=== PATIENT | male | born 1975 | race Two or more races ===

== ENCOUNTER 2025-08-07 11:38 | Inpatient (IN) | payer MEDICAID ==
[~2025-08-07] VITALS: Ht 172.7 cm; Wt 53.5 kg
[2025-08-07] MEDS ORDERED: PIPERACI/TAZO 3.375GM/D5W 50ML PB IV ONE (12:14)
[2025-08-07] MEDS ORDERED: VANCOMYCIN 1 GM /D5W 250 ML PB IV ONE (12:14)
[2025-08-07] MEDS: IV NS 0.9% 1,000 ML BAG IV ONE (12:26)
[2025-08-07] MEDS: PIPERACILLIN /TAZOBACTAM 3.375 G in IV D5W 50 ML IV ONE (12:30)
[2025-08-07 12:49] LABS: CALCIUM, SERUM 8.2 mg/dL (8.5-10.1); CREATININE 0.9 mg/dL (0.6-1.3); SODIUM SERUM 134 mmol/L (136-145); UREA NITROGEN, BLOOD 10 mg/dL (7-18)
[2025-08-07 12:54] LABS: ASPARTATE AMINOTRANSFERASE 20 U/L (15-37); TOTAL PROTEIN, SERUM 7.3 g/dL (6.4-8.2)
[2025-08-07 12:56] LABS: LACTIC ACID 9.1 mmol/L (0.4-2.0)
[2025-08-07 12:58] LABS: INR 1.08 (0.91-1.10)
[2025-08-07 13:06] LABS: PLATELET COUNT (AUTO) 165 K/uL (150-450); RED BLOOD CELL COUNT(AUTO) 3.32 MIL/uL (4.5-6.0); RED CELL DISTRIBUTION WIDTH 25.6 % (11.5-15.0)
[2025-08-07 13:07] LABS: WHITE BLOOD COUNT (AUTO) 1.9 K/uL (4.3-11.0)
[2025-08-07] MEDS: VANCOMYCIN 1 GM in IV D5W 250 ML IV ONE (13:15)
[2025-08-07 13:34] LABS: LYMPHOCYTES % (MANUAL) 8 % (16-48); MONOCYTES % (MANUAL) 16 % (0-11.0); NEUTROPHILS % (MANUAL) 76 (42-76)
[2025-08-07 13:39] LABS: PLATELET ESTIMATE ADEQUATE
[2025-08-07] MEDS ORDERED: DOSING PER PHARMACY-VANCOMYCIN IV XX PRN (14:30)
[2025-08-07] MEDS ORDERED: MAG HYDROX/AL HYDROX/SIMETH 30 ML UDC PO PRN (14:30)
[2025-08-07] MEDS ORDERED: ACETAMINOPHEN 325 MG TABLET PO PRN (14:30)
[2025-08-07] MEDS ORDERED: ONDANSETRON HCL/PF 4 MG/2 ML VIAL IVP PRN (14:30)
[2025-08-07] MEDS ORDERED: MAGNESIUM HYDROXIDE 30 ML UDC PO PRN (14:30)
[2025-08-07 14:42] LABS: APPEARANCE,URINE SLIGHTLY CLOUDY (CLEAR); BLOOD, URINE 2+ Ery/uL (NEGATIVE); LEUKOCYTE ESTERASE ,URINE 2+ (NEGATIVE); NITRITE, URINE NEGATIVE (NEGATIVE); UGLUCOSE NEGATIVE (NEGATIVE)
[2025-08-07 14:52] LABS: ADD URINE CULTURE YES; SQUAMOUS EPITHELIAL CELL,UR Few /HPF (None Seen)
[2025-08-07 14:53] LABS: CALCIUM OXALATE CRYSTALS,UR Moderate /HPF (None Seen)
[2025-08-07 15:00] VITALS: BP 97/64; TEMP 98.6; O2SAT 96
[2025-08-07] MEDS: ENOXAPARIN SODIUM 40 MG/0.4 ML DISP.SYRIN SQ SCH (15:00)
[2025-08-07] MEDS: IV NS 0.9% 1,000 ML IV SCH (15:28)
[2025-08-07] MEDS: VANCOMYCIN 500 MG in IV D5W 100ml IV ONE (16:04)
[2025-08-07] MEDS: DOCUSATE SODIUM 100 MG CAPSULE PO SCH (16:52)
[2025-08-07 17:40] VITALS: BP 97/64; TEMP 98.6; O2SAT 96
[2025-08-07 20:00] VITALS: BP 102/67; TEMP 98.1; O2SAT 98
[2025-08-07 20:15] VITALS: BP 99/70; TEMP 98.1; O2SAT 98
[2025-08-07] MEDS: CEFEPIME 1 GM in IV D5W 50 ML IV SCH (20:52)
[2025-08-07] MEDS ORDERED: PIPERACILLIN /TAZOBACTAM 3.375 G in IV D5W 100 ML IV SCH (21:00)
[2025-08-07] MEDS ORDERED: PIPERACILLIN /TAZOBACTAM 3.375 G in IV D5W 50 ML IV SCH (21:00)
[2025-08-08] MEDS: VANCOMYCIN HCL 1.25 GM in IV D5W 250 ML IV SCH (03:08)
[2025-08-08 08:00] VITALS: BP 118/74; TEMP 97.9; O2SAT 98
[2025-08-08 08:05] LABS: PLATELET COUNT (AUTO) 142 K/uL (150-450); RED BLOOD CELL COUNT(AUTO) 2.45 MIL/uL (4.5-6.0); RED CELL DISTRIBUTION WIDTH 27.2 % (11.5-15.0)
[2025-08-08 08:18] LABS: CALCIUM, SERUM 7.8 mg/dL (8.5-10.1); CREATININE 0.6 mg/dL (0.6-1.3); PHOSPHORUS 3.4 mg/dL (2.5-4.9); SODIUM SERUM 138.0 mmol/L (136-145); UREA NITROGEN, BLOOD 8.0 mg/dL (7-18)
[2025-08-08 08:54] LABS: WHITE BLOOD COUNT (AUTO) 1.8 K/uL (4.3-11.0)
[2025-08-08] MEDS: PANTOPRAZOLE 40 MG TABLET.DR PO SCH (09:40)
[2025-08-08] MEDS: ACYCLOVIR 200 MG CAPSULE PO SCH (09:40)
[2025-08-08] MEDS: POTASSIUM CHLORIDE 20 MEQ TAB.PRT.SR PO SCH (09:46)
[2025-08-08] MEDS: MAGNESIUM OXIDE 400 MG TABLET PO ONE (09:46)
[2025-08-08] MEDS ORDERED: FILGRASTIM (300 MCG) 300 MCG/ML VIAL SQ SCH (13:30)
[2025-08-08 13:43] LABS: IRON, SERUM 18.0 ug/dl (50-175)
[2025-08-08] MEDS: FILGRASTIM (300 MCG) 300 MCG/ML VIAL SQ SCH (15:00)
[2025-08-08 16:00] VITALS: BP 94/72; TEMP 98.6; O2SAT 98
[2025-08-08 16:23] LABS: FIBRINOGEN ACTIVITY 333.0 Mg/dL (213-485); INR 1.12 (0.91-1.10)
[2025-08-08 16:34] LABS: LYMPHOCYTES % (MANUAL) 25 % (16-48); MONOCYTES % (MANUAL) 18 % (0-11.0); MYELOCYTES % 1 % (0-0); NEUTROPHILS % (MANUAL) 56 (42-76); PLATELET ESTIMATE DECREASED
[2025-08-08 17:20] LABS: RHEUMATOID FACTOR SCREEN NEGATIVE (NEGATIVE)
[2025-08-08] MEDS: VANCOMYCIN 1 GM in IV D5W 250ml IV SCH (17:58)
[2025-08-08 20:00] VITALS: BP 99/65; TEMP 98.2; O2SAT 97
[2025-08-08 21:29] LABS: HIV-1/2 ANTIBODY NON REACTIVE (NONREACTIVE)
[2025-08-09] MEDS: IV NS 0.9% 1,000 ML IV PRN (04:35)
[2025-08-09 06:47] LABS: PLATELET COUNT (AUTO) 213 K/uL (150-450); RED BLOOD CELL COUNT(AUTO) 2.82 MIL/uL (4.5-6.0); RED CELL DISTRIBUTION WIDTH 26.3 % (11.5-15.0); WHITE BLOOD COUNT (AUTO) 2.3 K/uL (4.3-11.0)
[2025-08-09 07:06] LABS: CALCIUM, SERUM 7.5 mg/dL (8.5-10.1); CREATININE 0.6 mg/dL (0.6-1.3); PHOSPHORUS 2.2 mg/dL (2.5-4.9); SODIUM SERUM 136.0 mmol/L (136-145); UREA NITROGEN, BLOOD 6.0 mg/dL (7-18)
[2025-08-09 07:09] LABS: FIBRINOGEN ACTIVITY 366.0 Mg/dL (213-485); INR 1.11 (0.91-1.10)
[2025-08-09 08:00] VITALS: BP 113/78; TEMP 98.5; O2SAT 100
[2025-08-09 09:52] LABS: EOSINOPHILS % (MANUAL) 3 % (0-4); LYMPHOCYTES % (MANUAL) 16 % (16-48); MONOCYTES % (MANUAL) 48 % (0-11.0); NEUTROPHILS % (MANUAL) 33 (42-76); PLATELET ESTIMATE ADEQUATE
[2025-08-09] MEDS: MAGNESIUM OXIDE 400 MG TABLET PO ONE (10:00)
[2025-08-09 10:09] LABS: CARCINOEMBRYONIC ANTIGEN (CEA) 1.7 ng/mL (0.0-4.7); FOLIC ACID > 20.0 ng/mL (>3.0); IMMUNOGLOBULIN A, SERUM 421 mg/dL (90-386); IMMUNOGLOBULIN M, SERUM 85 mg/dL (20-172)
[2025-08-09] MEDS: NEUTRA PHOS 1 POWD.PACKET PO ONE (11:04)
[2025-08-09 14:11] LABS: FREE KAPPA LT CHAINS SERUM 112.3 mg/L (3.3-19.4); FREE LAMBDA LT CHAIN SERUM 138.2 mg/L (5.7-26.3); KAPPA/LAMBDA RATIO SERUM 0.81 (0.26-1.65)
[2025-08-09 16:19] VITALS: BP 108/81; TEMP 98.4; O2SAT 97
[2025-08-09 20:00] VITALS: BP 110/77; TEMP 98.4; O2SAT 99
[2025-08-09] MEDS: DOXYCYCLINE HYCLATE (100 MG) 100 MG TABLET PO SCH (21:27)
[2025-08-09] MEDS: CIPROFLOXACIN HCL 500 MG TABLET PO SCH (21:27)
[2025-08-10] MEDS ORDERED: VANCOMYCIN 750 MG in IV D5W 250 ML IV SCH (01:00)
[2025-08-10 07:54] LABS: PLATELET COUNT (AUTO) 294 K/uL (150-450); RED BLOOD CELL COUNT(AUTO) 2.95 MIL/uL (4.5-6.0); RED CELL DISTRIBUTION WIDTH 26.9 % (11.5-15.0); WHITE BLOOD COUNT (AUTO) 4.1 K/uL (4.3-11.0)
[2025-08-10 08:00] VITALS: BP 133/83; TEMP 98.1; O2SAT 99
[2025-08-10 08:23] LABS: CALCIUM, SERUM 7.5 mg/dL (8.5-10.1); CREATININE 0.5 mg/dL (0.6-1.3); PHOSPHORUS 2.8 mg/dL (2.5-4.9); SODIUM SERUM 135.0 mmol/L (136-145); UREA NITROGEN, BLOOD 4.0 mg/dL (7-18)
[2025-08-10 09:08] LABS: EOSINOPHILS % (MANUAL) 2 % (0-4); LYMPHOCYTES % (MANUAL) 18 % (16-48); MONOCYTES % (MANUAL) 36 % (0-11.0); NEUTROPHILS % (MANUAL) 44 (42-76); PLATELET ESTIMATE ADEQUATE
[2025-08-10] MEDS: POTASSIUM CHLORIDE 20 MEQ TAB.PRT.SR PO SCH (10:23)
[2025-08-10] MEDS: MAGNESIUM OXIDE 400 MG TABLET PO SCH (10:23)
[2025-08-10] MEDS ORDERED: IV NS 0.9% 250 ML IV ONE (11:10)
[2025-08-10] MEDS ORDERED: IOHEXOL-300 100 ML VIAL IV ONE (11:10)
[2025-08-10] MEDS ORDERED: CT SWABBABLE VALVE TRANS SET 1 EA INFUS.SET MC ONE (11:11)
[2025-08-10 20:00] VITALS: BP 126/91; TEMP 98.2; O2SAT 98
[2025-08-10 21:11] LABS: HEPATITIS B CORE AB, TOTAL Negative (Negative)
[2025-08-11 06:00] VITALS: BP_SYST 119; BP_SYST 138; BP_DIAS 82; BP_DIAS 95; TEMP 98.2; O2SAT 100
[2025-08-11 06:07] LABS: *ANA ANTI-CENTROMERE B AB <0.2 AI (0.0-0.9); *ANA ANTI-DNA(DS) AB, QN 10 IU/mL (0-9); *ANA ANTI-JO-1 <0.2 AI (0.0-0.9); *ANA ANTICHROMATIN ANTIBODY <0.2 AI (0.0-0.9); *ANA RNP ANTIBODIES 0.3 AI (0.0-0.9); *ANA SJOGREN'S ANTI-SS-A <0.2 AI (0.0-0.9); *ANA SJOGREN'S ANTI-SS-B <0.2 AI (0.0-0.9); *ANAANTI-SCLERODERMA-70 AB <0.2 AI (0.0-0.9); *ANASMITH AB <0.2 AI (0.0-0.9)
[2025-08-11 06:19] LABS: PLATELET COUNT (AUTO) 385 K/uL (150-450); RED BLOOD CELL COUNT(AUTO) 3.21 MIL/uL (4.5-6.0); RED CELL DISTRIBUTION WIDTH 25.8 % (11.5-15.0); WHITE BLOOD COUNT (AUTO) 6.9 K/uL (4.3-11.0)
[2025-08-11 06:36] LABS: CALCIUM, SERUM 7.7 mg/dL (8.5-10.1); CREATININE 0.6 mg/dL (0.6-1.3); PHOSPHORUS 3.0 mg/dL (2.5-4.9); SODIUM SERUM 134.0 mmol/L (136-145); UREA NITROGEN, BLOOD 5.0 mg/dL (7-18)
[2025-08-11 08:00] VITALS: BP 140/95; TEMP 98.1; O2SAT 99
[2025-08-11] MEDS: MAGNESIUM OXIDE 400 MG TABLET PO SCH (09:50)
[2025-08-11] MEDS: POTASSIUM CHLORIDE 20 MEQ TAB.PRT.SR PO SCH (09:50)
[2025-08-11 10:01] LABS: BAND % (MANUAL) 3 % (0.0-5.0); EOSINOPHILS % (MANUAL) 3 % (0-4); LYMPHOCYTES % (MANUAL) 11 % (16-48); MONOCYTES % (MANUAL) 8 % (0-11.0); MYELOCYTES % 6 % (0-0); NEUTROPHILS % (MANUAL) 69 (42-76)
[2025-08-11 10:02] LABS: PLATELET ESTIMATE ADEQUATE
[2025-08-11 14:54] VITALS: BP_SYST 112; BP_SYST 132; BP_DIAS 71; TEMP 98.1; O2SAT 98
[2025-08-11 16:00] VITALS: BP 138/94; TEMP 98.1; O2SAT 100
[2025-08-11 20:00] VITALS: BP_SYST 113; BP_SYST 118; BP_DIAS 53; BP_DIAS 83; TEMP 98.2; O2SAT 98
[2025-08-11] MEDS: PIPERACILLIN /TAZOBACTAM 3.375 G in IV D5W 50 ML IV SCH (23:10)
[2025-08-12 06:35] LABS: PLATELET COUNT (AUTO) 442 K/uL (150-450); RED BLOOD CELL COUNT(AUTO) 3.22 MIL/uL (4.5-6.0); RED CELL DISTRIBUTION WIDTH 26.2 % (11.5-15.0); WHITE BLOOD COUNT (AUTO) 10.5 K/uL (4.3-11.0)
[2025-08-12 07:15] LABS: CALCIUM, SERUM 7.9 mg/dL (8.5-10.1); CREATININE 0.6 mg/dL (0.6-1.3); PHOSPHORUS 3.4 mg/dL (2.5-4.9); SODIUM SERUM 133.0 mmol/L (136-145); UREA NITROGEN, BLOOD 5.0 mg/dL (7-18)
[2025-08-12 08:00] VITALS: BP 137/85; TEMP 97.7; O2SAT 100
[2025-08-12 08:31] LABS: EOSINOPHILS % (MANUAL) 3 % (0-4); LYMPHOCYTES % (MANUAL) 2 % (16-48); MONOCYTES % (MANUAL) 15 % (0-11.0); MYELOCYTES % 2 % (0-0); NEUTROPHILS % (MANUAL) 78 (42-76)
[2025-08-12 08:32] LABS: PLATELET ESTIMATE ADEQUATE
[2025-08-12] MEDS: MAGNESIUM OXIDE 400 MG TABLET PO ONE (13:14)
[2025-08-12] MEDS ORDERED: GADOTERATE MEGLUMINE 10 MMOL/20 ML VIAL IV ONE (14:25)
[2025-08-12 16:00] VITALS: BP 116/81; TEMP 98.1; O2SAT 99
[2025-08-12 20:00] VITALS: BP_SYST 118; BP_SYST 150; BP_DIAS 71; BP_DIAS 85; TEMP 98.2; O2SAT 100
[2025-08-13 06:57] LABS: PLATELET COUNT (AUTO) 477 K/uL (150-450); RED BLOOD CELL COUNT(AUTO) 3.30 MIL/uL (4.5-6.0); RED CELL DISTRIBUTION WIDTH 26.0 % (11.5-15.0); WHITE BLOOD COUNT (AUTO) 12.0 K/uL (4.3-11.0)
[2025-08-13 07:08] LABS: CALCIUM, SERUM 8.0 mg/dL (8.5-10.1); CREATININE 0.6 mg/dL (0.6-1.3); PHOSPHORUS 3.6 mg/dL (2.5-4.9); SODIUM SERUM 132.0 mmol/L (136-145); UREA NITROGEN, BLOOD 6.0 mg/dL (7-18)
[2025-08-13 09:00] VITALS: BP 142/91; TEMP 97.3; O2SAT 99
[2025-08-13] MEDS: POTASSIUM CHLORIDE 20 MEQ TAB.PRT.SR PO SCH (10:05)
[2025-08-13] MEDS: MAGNESIUM OXIDE 400 MG TABLET PO ONE (10:05)
[2025-08-13 12:54] LABS: BASOPHILS % (MANUAL) 0 % (0.0-2.0); EOSINOPHILS % (MANUAL) 0 % (0-4); LYMPHOCYTES % (MANUAL) 9 % (16-48); MONOCYTES % (MANUAL) 21 % (0-11.0); NEUTROPHILS % (MANUAL) 70 (42-76)
[2025-08-13 12:55] LABS: PLATELET ESTIMATE ADEQUATE
[2025-08-13] MEDS: PIPERACILLIN /TAZOBACTAM 3.375 G in IV D5W 100 ML IV SCH (13:40)
[2025-08-13 16:33] VITALS: BP 109/60; TEMP 98; O2SAT 94
[2025-08-13 20:39] VITALS: BP 123/85; TEMP 97.3; O2SAT 99
[2025-08-14 06:30] LABS: PLATELET COUNT (AUTO) 468 K/uL (150-450); RED BLOOD CELL COUNT(AUTO) 3.11 MIL/uL (4.5-6.0); RED CELL DISTRIBUTION WIDTH 25.2 % (11.5-15.0); WHITE BLOOD COUNT (AUTO) 14.1 K/uL (4.3-11.0)
[2025-08-14 06:35] LABS: FIBRINOGEN ACTIVITY 405.0 Mg/dL (213-485); INR 1.09 (0.91-1.10)
[2025-08-14 06:40] LABS: CALCIUM, SERUM 7.6 mg/dL (8.5-10.1); CREATININE 0.7 mg/dL (0.6-1.3); PHOSPHORUS 3.6 mg/dL (2.5-4.9); SODIUM SERUM 132.0 mmol/L (136-145); UREA NITROGEN, BLOOD 7.0 mg/dL (7-18)
[2025-08-14 07:00] VITALS: BP 140/96; TEMP 98.4; O2SAT 100
[2025-08-14] MEDS: POTASSIUM CL. PREMIX PERIPHER. 50 ML IV SCH (09:34)
[2025-08-14 11:08] LABS: EOSINOPHILS % (MANUAL) 5 % (0-4); LYMPHOCYTES % (MANUAL) 4 % (16-48); METAMYELOCYTES % 3 % (0-0); MONOCYTES % (MANUAL) 1 % (0-11.0); MYELOCYTES % 1 % (0-0); NEUTROPHILS % (MANUAL) 86 (42-76); PLATELET ESTIMATE INCREASED
[2025-08-14] MEDS ORDERED: NALOXONE PREFILLED SYRINGE 2 MG/2 ML SYRINGE IV PRN ×2 (11:30)
[2025-08-14] MEDS ORDERED: FENTANYL PF 250MCG/5ML AMPUL IV PRN ×2 (11:30)
[2025-08-14] MEDS ORDERED: MIDAZOLAM HCL 2 MG/2ML VIAL IV PRN ×2 (11:30)
[2025-08-14] MEDS ORDERED: FLUMAZENIL 0.5 MG VIAL IV PRN ×2 (11:30)
[2025-08-14] MEDS ORDERED: LIDOCAINE 1% INJ 50 ML MDV IJ ONE (11:31)
[2025-08-14] MEDS ORDERED: LIDOCAINE HCL/PF 1% 30 ML SDV ONE (11:32)
[2025-08-14 15:00] VITALS: BP 120/84; TEMP 97.9; O2SAT 100
[2025-08-14 17:58] VITALS: BP 116/77; TEMP 98.4; O2SAT 100
[2025-08-14 19:00] VITALS: BP 116/76; TEMP 99.7; O2SAT 99
[2025-08-15 07:00] VITALS: BP 116/85; TEMP 98.6; O2SAT 99
[2025-08-15 07:20] LABS: PLATELET COUNT (AUTO) 443 K/uL (150-450); RED BLOOD CELL COUNT(AUTO) 2.97 MIL/uL (4.5-6.0); RED CELL DISTRIBUTION WIDTH 25.3 % (11.5-15.0); WHITE BLOOD COUNT (AUTO) 15.1 K/uL (4.3-11.0)
[2025-08-15 07:30] LABS: FIBRINOGEN ACTIVITY 394.0 Mg/dL (213-485); INR 1.07 (0.91-1.10)
[2025-08-15 07:46] LABS: CALCIUM, SERUM 7.7 mg/dL (8.5-10.1); CREATININE 0.7 mg/dL (0.6-1.3); PHOSPHORUS 2.9 mg/dL (2.5-4.9); SODIUM SERUM 134.0 mmol/L (136-145); UREA NITROGEN, BLOOD 8.0 mg/dL (7-18)
[2025-08-15 16:00] VITALS: BP 119/75; TEMP 99.3; O2SAT 98
[2025-08-15 20:00] VITALS: BP 123/76; TEMP 98.2; TEMP 98.6; O2SAT 99
[2025-08-16 07:23] LABS: PLATELET COUNT (AUTO) 387 K/uL (150-450); RED BLOOD CELL COUNT(AUTO) 2.93 MIL/uL (4.5-6.0); RED CELL DISTRIBUTION WIDTH 25.2 % (11.5-15.0); WHITE BLOOD COUNT (AUTO) 13.5 K/uL (4.3-11.0)
[2025-08-16 08:00] VITALS: BP 143/94; TEMP 98.2; O2SAT 100
[2025-08-16 08:00] LABS: CALCIUM, SERUM 7.6 mg/dL (8.5-10.1); CREATININE 0.6 mg/dL (0.6-1.3); SODIUM SERUM 133.0 mmol/L (136-145); UREA NITROGEN, BLOOD 6.0 mg/dL (7-18)
[2025-08-16 09:08] LABS: EOSINOPHILS % (MANUAL) 1 % (0-4); LYMPHOCYTES % (MANUAL) 6 % (16-48); MONOCYTES % (MANUAL) 12 % (0-11.0); NEUTROPHILS % (MANUAL) 81 (42-76); PLATELET ESTIMATE ADEQUATE
[2025-08-16 10:05] VITALS: BP_SYST 140; BP_SYST 144; BP_DIAS 92; BP_DIAS 96
[2025-08-16] MEDS: POTASSIUM CHLORIDE 20 MEQ TAB.PRT.SR PO ONE (12:13)
[2025-08-16 16:18] VITALS: BP 128/79; TEMP 97.7; O2SAT 99
[2025-08-16 20:00] VITALS: BP_SYST 133; BP_SYST 138; BP_DIAS 91; BP_DIAS 95; TEMP 98
[2025-08-17 06:01] LABS: PLATELET COUNT (AUTO) 375 K/uL (150-450); RED BLOOD CELL COUNT(AUTO) 2.83 MIL/uL (4.5-6.0); RED CELL DISTRIBUTION WIDTH 24.6 % (11.5-15.0); WHITE BLOOD COUNT (AUTO) 14.6 K/uL (4.3-11.0)
[2025-08-17 06:02] LABS: CALCIUM, SERUM 7.7 mg/dL (8.5-10.1); CREATININE 0.5 mg/dL (0.6-1.3); PHOSPHORUS 2.9 mg/dL (2.5-4.9); SODIUM SERUM 133.0 mmol/L (136-145); UREA NITROGEN, BLOOD 7.0 mg/dL (7-18)
[2025-08-17] MEDS ORDERED: ACYC400T19 PO (08:36)
[2025-08-17 08:39] VITALS: BP 151/100; TEMP 98.2; O2SAT 97
[2025-08-17] MEDS ORDERED: POTASSIUM CHLORIDE 20 MEQ TAB.PRT.SR PO ONE (09:00)
[2025-08-17] MEDS: POTASSIUM CHLORIDE 20 MEQ POWDER PACKET PO ONE (09:37)
[2025-08-17] MEDS: MAGNESIUM OXIDE 400 MG TABLET PO ONE (10:43)
[2025-08-17 16:28] VITALS: BP 102/50; TEMP 97.7; O2SAT 94
[2025-08-17 18:16] LABS: IRON, SERUM 30 ug/dl (50-175)
[2025-08-17 20:00] VITALS: BP_SYST 126; BP_SYST 134; BP_DIAS 84; BP_DIAS 92; TEMP 97.3; O2SAT 98
[2025-08-18 05:56] LABS: PLATELET COUNT (AUTO) 413 K/uL (150-450); RED BLOOD CELL COUNT(AUTO) 2.90 MIL/uL (4.5-6.0); RED CELL DISTRIBUTION WIDTH 24.3 % (11.5-15.0); WHITE BLOOD COUNT (AUTO) 14.6 K/uL (4.3-11.0)
[2025-08-18 06:14] LABS: CALCIUM, SERUM 8.1 mg/dL (8.5-10.1); CREATININE 0.7 mg/dL (0.6-1.3); PHOSPHORUS 4.1 mg/dL (2.5-4.9); SODIUM SERUM 135.0 mmol/L (136-145); UREA NITROGEN, BLOOD 9.0 mg/dL (7-18)
[2025-08-18 07:26] LABS: OCCULT BLOOD STOOL NEGATIVE (NEGATIVE)
[2025-08-18 07:30] VITALS: BP 145/98; TEMP 97.9; O2SAT 100
[2025-08-18] MEDS: MAGNESIUM OXIDE 400 MG TABLET PO ONE (09:51)
[2025-08-18] MEDS: POTASSIUM CHLORIDE 20 MEQ TAB.PRT.SR PO SCH (09:56)
[2025-08-18 16:00] VITALS: BP 141/99; TEMP 97.2; O2SAT 100
[2025-08-18 20:00] VITALS: BP 141/87; TEMP 98.2; O2SAT 98
[2025-08-19 06:16] VITALS: BP_SYST 133; BP_SYST 136; BP_DIAS 91; BP_DIAS 98; TEMP 98.2; O2SAT 98
[2025-08-19 07:28] LABS: PLATELET COUNT (AUTO) 445 K/uL (150-450); RED BLOOD CELL COUNT(AUTO) 2.85 MIL/uL (4.5-6.0); RED CELL DISTRIBUTION WIDTH 24.3 % (11.5-15.0); WHITE BLOOD COUNT (AUTO) 15.6 K/uL (4.3-11.0)
[2025-08-19 08:00] VITALS: BP 143/93; TEMP 98.1; O2SAT 100
[2025-08-19 16:00] VITALS: BP 117/87; TEMP 98.2; O2SAT 99
[2025-08-19 20:00] VITALS: BP 137/79; TEMP 99.1; O2SAT 100
[2025-08-20 07:00] VITALS: BP 127/94; TEMP 97.5; O2SAT 99
[2025-08-20 07:28] LABS: PLATELET COUNT (AUTO) 411 K/uL (150-450); RED BLOOD CELL COUNT(AUTO) 2.73 MIL/uL (4.5-6.0); RED CELL DISTRIBUTION WIDTH 24.3 % (11.5-15.0); WHITE BLOOD COUNT (AUTO) 14.5 K/uL (4.3-11.0)
[2025-08-20 08:11] LABS: CALCIUM, SERUM 7.6 mg/dL (8.5-10.1); CREATININE 0.6 mg/dL (0.6-1.3); PHOSPHORUS 3.8 mg/dL (2.5-4.9); SODIUM SERUM 133.0 mmol/L (136-145); UREA NITROGEN, BLOOD 10.0 mg/dL (7-18)
[2025-08-20] MEDS: MAGNESIUM OXIDE 400 MG TABLET PO ONE (09:45)
[2025-08-20 10:10] LABS: *SPE A/G RATIO 0.3 (0.7-1.7); *SPE ALBUMIN 1.4 g/dL (2.9-4.4); *SPE ALPHA-1-GLOBULIN 0.4 g/dL (0.0-0.4); *SPE ALPHA-2-GLOBULIN 0.7 g/dL (0.4-1.0); *SPE BETA GLOBULIN 1.0 g/dL (0.7-1.3); *SPE GLOBULIN, TOTAL 4.1 g/dL (2.2-3.9); *SPE M-SPIKE Not Observed g/dL (Not Observed); *SPE PROTEIN TOTAL 5.5 g/dL (6.0-8.5); *SPEGAMMA GLOBULIN 2.0 g/dL (0.4-1.8)
[2025-08-20 16:00] VITALS: BP 121/78; TEMP 99.3; O2SAT 99
== END 2025-08-20 17:21 | DRG 720 ==
LOC: ER 11:51 → TELE 14:11 → MED 17:13 → TELE 08-17 08:41
PROVIDERS: ATTEND Nurse Practitioner Family
PROC: 0WBH3ZX Excision of Retroperitoneum, Percutaneous Approach, Diagnostic (ICD-10-PCS; principal; 2025-08-14)
DX: A41.9 Sepsis, unspecified organism (principal); E43 Unspecified severe protein-calorie malnutrition; D61.810 Antineoplastic chemotherapy induced pancytopenia; E87.20 Acidosis, unspecified; C79.89 Secondary malignant neoplasm of other specified sites; R64 Cachexia; E88.09 Other disorders of plasma-protein metabolism, not elsewhere classified; D63.8 Anemia in other chronic diseases classified elsewhere; C20 Malignant neoplasm of rectum; D72.819 Decreased white blood cell count, unspecified; N13.6 Pyonephrosis; D69.59 Other secondary thrombocytopenia; K76.0 Fatty (change of) liver, not elsewhere classified; E87.1 Hypo-osmolality and hyponatremia; G90.89 Other disorders of autonomic nervous system; E86.0 Dehydration; Z68.1 Body mass index [BMI] 19.9 or less, adult; E83.42 Hypomagnesemia; E87.6 Hypokalemia; Z93.3 Colostomy status; Z92.3 Personal history of irradiation; Z90.49 Acquired absence of other specified parts of digestive tract; R53.1 Weakness; N28.1 Cyst of kidney, acquired; I95.1 Orthostatic hypotension; R19.09 Other intra-abdominal and pelvic swelling, mass and lump; T45.1X5A Adverse effect of antineoplastic and immunosuppressive drugs, initial encounter; Y92.89 Other specified places as the place of occurrence of the external cause
CPT/HCPCS: 36415; 71045-TC; 71260-TC; 72197-TC; 76700-TC; 77012-TC; 80048-TC; 80076-TC; 80202-TC; 81001; 82272-TC; 82378; 82607-TC; 82728-TC; 82784; 82962-TC; 83540-TC; 83605-TC; 83735-TC; 83935-TC; 84100-TC; 84155; 84165; 84300-TC; 84443-TC; 84484-TC; 84550-TC; 85025-TC; 85027-TC; 85396; 85730-TC; 86140-TC; 86225; 86235; 86317; 86334; 86431-TC; 86704; 86803; 86850-TC; 87040-TC; 87081-TC; 87086-TC; 87340; 87806; 88305-TC; 88333-TC; 88334-TC; 88341; 88342; 93307-TC; 97110-TC; 97112-TC; 97116-TC; 97530-TC; 97535-TC; A4223; A6253; A6254; A6403; A9575; G0378; J0692; J1442; J1650; J2250; J2543; J3010; J3373; J3374; J3480; J3490; J7030; J7050; J7060; Q9967